=== PATIENT | female | born 1945 ===

== ENCOUNTER → 2018-04-23 13:59 | Outpatient (REF) | payer MEDICARE, SELFPAY | LOC: LAB 13:59 | PROVIDERS: Visit Provider Physician Assistant | DX: C44.519 Basal cell carcinoma of skin of other part of trunk (principal); H61.0 Chondritis and perichondritis of external ear | CPT/HCPCS: 87070; 87077; 87147; 87186; 87205 ==

== ENCOUNTER → 2018-05-23 13:19 | Outpatient (REF) | payer MEDICARE, SELFPAY | LOC: LAB 13:19 | PROVIDERS: Visit Provider Physician Assistant | DX: H61.031 Chondritis of right external ear (principal) | CPT/HCPCS: 87070; 87075; 87205 ==

== ENCOUNTER → 2019-03-16 19:47 | Outpatient (REF) | payer MEDICARE, SELFPAY ==
[2019-03-16 20:19] LABS: Hemoglobin A1C% w Est Avg Glu 5.6 % (4.0-6.0)
[2019-03-16 20:38] LABS: Cholesterol 124 mg/dL (140-199); HDL Cholesterol 46 mg/dL (40-60); LDL Cholesterol Calculated 50 mg/dL (<100); Triglycerides 139 mg/dL (35-150)
[2019-03-16 20:40] LABS: Creatinine Urine Random 55.9 mg/dL
[2019-03-16 20:45] LABS: Microalbumi Creatinin Ratio Ur 21.4 ug/mg CR (<30); Microalbumin Urine Random 1.2 mg/dL (0-1.6)
== END ==
LOC: LAB 19:47
PROVIDERS: Visit Provider Family Medicine
DX: E11.9 Type 2 diabetes mellitus without complications (principal)
CPT/HCPCS: 36415; 80061; 82043; 82570; 83036